=== PATIENT | female | born 1970 | race Caucasian/White ===

== ENCOUNTER 2024-08-25 08:25 | Outpatient (OUT) | payer OTHER, SELFPAY ==
[2024-08-25 08:34] LABS: Basophils Percent Auto 0.6 % (0.2-2.0); Eosinophils Absolute Auto 0.2 10^3/uL (0.0-0.7); Eosinophils Percent Auto 5.2 % (0.9-7.0); Hematocrit 40.9 % (36.0-48.0); Hemoglobin 13.2 g/dL (12.0-16.0); Immature Granulocytes Abs Auto 0.01 10^3/uL (0.00-0.03); Immature Granulocytes Pct Auto 0.2 % (0.0-0.5); Lymphocytes Absolute Auto 1.5 10^3/uL (1.2-3.8); Lymphocytes Percent Auto 31.4 % (20.5-60.0); Mean Corpuscular HGB Conc 32.3 g/dL (29.9-35.2); Mean Corpuscular Hemoglobin 29.7 pg (26.7-34.0); Mean Corpuscular Volume 91.9 fL (81.0-99.0); Monocytes Absolute Auto 0.4 10^3/uL (0.3-0.8); Monocytes Percent Auto 8.2 % (1.7-12.0); Neutrophils Absolute Auto 2.5 10^3/uL (1.4-6.5); Neutrophils Percent Auto 54.4 % (43.0-75.0); Platelet Count 301 10^3/uL (150-450); Red Blood Count 4.45 10^6/uL (4.20-5.40); Red Cell Distribution Width 12.6 % (11.0-15.0); White Blood Count 4.6 10^3/uL (4.0-11.0)
[2024-08-25 08:54] LABS: Estimated Average Glucose 114 mg/dL; Glycohemoglobin A1C 5.6 % (4.5-6.2)
[2024-08-25 08:56] LABS: Alanine Aminotransferase 30 U/L (14-59); Albumin Globulin Ratio 1.3; Albumin Level 3.8 g/dL (3.4-5.0); Alkaline Phosphatase 59 U/L (46-116); Aspartate Amino Transferase 24 U/L (15-37); Bilirubin Direct 0.1 mg/dL (0.0-0.2); Bilirubin Total 0.5 mg/dL (0.2-1.0); Calcium 8.8 mg/dL (8.5-10.1); Carbon Dioxide 29.1 mmol/L (21.0-32.0); Chloride 107 mmol/L (98-107); Cholesterol 260 mg/dL (<=200); Estimated GFR (African America >60 (>=60 mL/min/1.73m^2); Estimated GFR (Non-African Ame >60 (>=60 mL/min/1.73m^2); Glucose 95 mg/dL (74-106); HDL Cholesterol 65 mg/dL (40-60); Potassium 4.1 mmol/L (3.5-5.1); Sodium 145 mmol/L (136-145); Total Protein 6.8 g/dL (6.4-8.2); Triglycerides 80 mg/dL (<=150)
== END 2024-08-25 08:26 | disposition home or self-care (01) ==
LOC: LAB 08:25
PROVIDERS: PCP Family Medicine; Visit Provider Family Medicine
DX: E78.00 Pure hypercholesterolemia, unspecified (principal); I10 Essential (primary) hypertension; R73.02 Impaired glucose tolerance (oral)
CPT/HCPCS: 36415; 80048; 80061; 80076; 83036; 85025

== ENCOUNTER 2025-08-29 09:16 | Outpatient (OUT) | payer OTHER, SELFPAY ==
--- OUTSIDE RECORDS SUMMARY | 2025-08-29 09:21 | XMS_ITS | Clinical Summary ---
Author Organization [facility] Address [address] [place] [address] Care Team Providers Care Auto Service Instructor Name Role Phone Unallocated, Noms Provider Primary Care Provi karen Allergies No known active allergies Medications MedicationSigDispense QuantityRefillsLast FilledStart DateEnd DateStatus nystatin (Mycostatin) ointment Indications:Rash and other nonspecific skin eruptionApply to affected areas, twice daily when flared, 30 day supply 15 g 4Active Additional Information Patient not taking.Reported on 05/21/2025 triamcinolone (Kenalog) 0.1 % cream Indications:Allergic contact dermatitis, unspecified triggerApply to affected areas on arms and legs, up to twice a day when flared, do not use one the face, groin, or underarms, 30 day supply 80 g 5Active Active Problems ProblemNoted DateDiagnosed 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 Resolved Problems ProblemNoted DateDiagnosed DateResolved DateCystocele, acntfwi3807/21/2023 07/22/2023Other wiryoat85erioral oxgxntyidb45/09/2023 07/22/20230357Xtkhvarsh28Uterine Immunizations ImmunizationAdministration DatesNext AacGQY0110/30/1997 Family History Medical HistoryRelationNameCommentsMultiple sclerosisFatherDiabetesMotherEileen HypertensionMotherEileenRelationNameStatusCommentsFatherDeceasedMotherEileen Social History Tobacco UseTypesPacks/DayYears UsedDateSmoking Tobacco: NeverSmokeless Tobacco: Never Tobacco Cessation:Counseling Given: Not Answered Alcohol UseStandard Drinks/WeekCommentsNever0 (1 standard drink = 0.6 oz pure alcohol)AUDIT-CAnswerDate RecordedQ1: How often do you have a drink containing alcohol?Never07/24/2024Q2: How many drinks containing alcohol do you have on a typical day when you are drinking?Patient does not drink07/24/2024Q3: How often do you have six or more drinks on one occasion?Never07/24/2024HQ-2AnswerDate RecordedPatient Health Questionnaire-2 Dgzbd913/10/2023CommentsNoSex and Gender InformationValueDate RecordedSex Assigned at BirthNot on fileLegal Sex Ncafkk9011/24/2022 7:11 PM EDTGender IdentityNot on fileSexual OrientationNot on file Last Filed Vital Signs Vital SignReadingTime TakenCommentsBlood Uyubvvwq826/8807/24/2024 10:17 AM EST Pulse--Temperature--Respiratory Rate--Oxygen Saturation--Inhaled Oxygen Concentration--Sajnzt65.8 kg (156 lb)07/24/2024 10:17 AM WXSQgtptn101.6 cm (5' 4 )07/24/2024 10:17 AM ESTBody Mass Index26.7807/24/2024 10:17 AM EST Plan of Treatment DateTypeDepartmentCare Team (Latest Contact Info)Ridrfwbjdvl77/09/2026 10:45 AM EDTOffice Visit GISELA HUFFMAN [address] [place] [address] Aislinn Smith DO [address] [place] [address] 04/15/2026 1:00 PM EDTOffice Visit GISELA [facility] [address] [place] [address] Darling Field MD [address] [place] [address] Health MaintenanceDue DateLast DoneCommentsCT Nwtktxbqzdmc1968Colonoscopy 1968Colorectal Cancer Gwskhqpsl1968FIT-DNA1968FIT1968 FOBT1970 7528Lufgrrpxyuwux47/19/7890Nymafsozs49, 03/07/2019, 03/07/2019COVID-19 Vaccine ( season)2025Influenza Vaccine (#1) 2025Pap Smear611/ervical Cancer Tefhpohir89/12/2029 HPV/Hdsmmr77, 07/21/2021, 06/16/2020, Additional history existsPneumococcal Vaccine: Pediatrics (0 to 5 Years) and At-Risk Patients (6 to 64 Years)Aged OutNo longer eligible based on patient's age to complete this topic Procedures Procedure NamePriorityDate/TimeAssociated DiagnosisCommentsIGP, APT HPV,RFX 16/18,89Jqyapit98/12/2024 12:00 AM EST Screening for malignant neoplasm of cervix THINPREP TIS PAP AND HPV MRNA E6/E7 WITH REFLEX TO HPV 16,18/30Qxgkrco92/10/2023 11:35 AM EST BI MAMMOGRAM SCREENING TOMOSYNTHESIS LMOLNZYOAKqewewi56/25/2022 from Last 3 Months or Most Recently Relevant to Health Maintenance Results * IGP, APT HPV,RFX 16/18,45 (07/24/2024 12:00 AM EST)ComponentValueRef RangeTest MethodAnalysis TimePerformed AtPathologist SignatureDiagnosis:CommentLABCORP Comment:NEGATIVE FOR INTRAEPITHELIAL LESION OR MALIGNANCY.Specimen Adequacy: CommentLABCORPComment: Satisfactory for evaluation. ??Endocervical and/or squamous metaplastic cells (endocervical component) are present. Clinician Provided ICD10:CommentLABCORPComment:Z12.4Performed By:CommentLABC[facility]P Comment:Jacquie C Wilt, Jewelry Bench Molder (ASCP)Cyto Comments.LABCORPNote:Comment [facility]PComment: The Pap smear is a screening test designed to aid in the detection of premalignant and malignant conditions of the uterine cervix. ??It is not a diagnostic procedure and should not be used as the sole means of detecting cervical cancer. ??Both false-positive and false-negative reports do occur. Test Methodology:CommentLABCORPComment: This liquid based ThinPrep(R) pap test was screened with the use of an image guided system. HPV AptimaNegativeNegativeLABCORPComment: This nucleic acid amplification test detects fourteen high-risk HPV types (16,18,31,33,35,39,45,51,52,56,58,59,66,68) without differentiation. Specimen (Source)Anatomical Location / LateralityCollection Method / Volume Collection TimeReceived VvfxXnbt79 Narrative [facility] - 07/27/2024 11:09 AM EST Performed at: 01 - [facility] [address] [place] [address] ??[id number] Supervisor Metal Furniture Fabrication: Jerry Teran MD, Phone: ??[phone] Performed at: ??02 - Lab[address] ??[id number] Supervisor Metal Furniture [employer]ation: Dot Padron MD, Phone: ??[phone] Performed at: ??03 - [facility] ??[id number] Supervisor Metal Furniture Fabrication: Dot Padron MD, Phone: ??[phone] Specimen Comment: [id number] Specimen Comment: No. of containers..01 ThinPrep Vial Authorizing ProviderResult TypeResult StatusWilliaviviane DominguezSelect Medical Special[facility] [place] BLOOD ORDERABLESFinal ResultPerforming OrganizationAddressCity/State/ZIP CodePhone Number [facility] * THINPREP TIS PAP AND HPV MRNA E6/E7 WITH REFLEX TO HPV 16,18/45 (07/22/2023 11:35 AM EST)ComponentValueRef RangeTest MethodAnalysis TimePerformed At Pathologist SignatureCLINICAL INFORMATIONQUESTComment:None givenLMPQUEST Comment:2017PREV. PAPQUESTComment:NEGPREV. BXQUESTComment:NONE GIVENSOURCE QUESTComment:None givenSTATEMENT OF ADEQUACYQUESTComment:SATISFACTORY FOR EVALUATIONINTERPRETATION/RESULTQUESTComment: Cytology Results: Negative for intraepithelial lesion or malignancy. Atrophic pattern; predominantly parabasal cells COMMENTQUESTComment: This Pap test has been evaluated with computer assisted technology. Parabasal cells in smears that lack maturation due to atrophy or other hormonal reasons cannot be differentiated from transformation zone cells. Accordingly, presence or absence of endocervical or transformation zone components cannot be reported in this patient. CYTOTECHNOLOGISTQUESTComment: LXT, CT(ASCP) CT screening location: [facility] [place], [address] [place] [address]. (ALWAYS MESSAGE)QUESTComment: EXPLANATORY NOTE: The Pap is a screening test for cervical cancer. It is not a diagnostic test and is subject to false negative and false positive results. It is most reliable when a satisfactory sample, regularly obtained, is submitted with relevant clinical findings and history, and when the Pap result is evaluated along with historic and current clinical information. HPV MRNA E6/E7Not DetectedNot DetectedQUESTComment: Methodology: Hat Binder-Mediated Amplification This assay detects E6/E7 viral messenger RNA (mRNA) from 14 high-risk HPV types (16,18,31,33,35,39,45,51,52,56,58,59,66,68). Cervical sources are required for HPV testing. If a vaginal source from a patient who has had a total hysterectomy with removal of cervix was submitted, please contact the testing laboratory for alternative testing options. For additional information, please refer to http://education.Vascular Imaging/faq/CTO288l0 (This link if provided for information/ educational purposes only.) Specimen (Source)Anatomical Location / LateralityCollection Method / Volume Collection TimeReceived Time07/22/2023 11:35 AM EST07/23/2023 2:50 AM EST Narrative Resulting Agency Comment Performing Organization Information ?Site ID: [id number] ?Name: [facility] ?Address: [address] [place] [address], [address] [place] [phone] ?Director: Phan Erazo MD Authorizing ProviderResult TypeResult StatusWilliam D Luis DOLAB CYTOLOGY ORDERABLESFinal ResultPerforming OrganizationAddressCity/State/ZIP CodePhone Number [facility] * Bilateral screening mammogram with tomosynthesis (05/06/2022)Anatomical Region LateralityModalityBreastBilateralMammographySpecimen (Source)Anatomical Location / LateralityCollection Method / VolumeCollection TimeReceived Time Narrative 05/06/2022 12:00 AM EDT PERFORMED AT [facility] LOCATION:[place] [phone] Patient: ? DUGLAS Benz ? Exam Date: ? 05/06/2022 : ? 1970 ?Gender:F ? Ordering : ? DR AISLINN SMITH ? Admission #: ? [id number] Family : ?Order #: ? [id number] ? CLICK HERE TO VIEW EXAM RADIOLOGY REPORT PROCEDURE: ? MAMMOGRAM SCREENING 3D BILATERAL CAD COMPARISON: ? MG MAMM SCREEN JESSICA W CAD 03/07/2019. ??MG MAMM SCREEN JESSICA W CAD 06/08/2017. INDICATIONS: ? Screening mammography Calculator Name ? NCI Breast Cancer Risk Assessment Tool 5 Year Breast Cancer Risk ? 1.20% Lifetime Breast Cancer Risk ? 9.40% Personal Breast Cancer ?No Personal Ovarian Cancer ? No Treatments ? None Family Cancers ? Uncle-maternal with colon cancer at age 70. LOCATION: ? [facility] BREAST COMPOSITION: ? Scattered areas fibroglandular density. FINDINGS: DIAGNOSTIC CATEGORY 1--NEGATIVE. RIGHT BREAST: ??No significant suspicious finding. ??No significant change has occurred. LEFT BREAST: ??No significant suspicious finding. ??No significant change has occurred. RECOMMENDATIONS: ROUTINE MAMMOGRAM AND CLINICAL EVALUATION IN 12 MONTHS. PLEASE NOTE: ??A NORMAL MAMMOGRAM DOES NOT EXCLUDE THE POSSIBILITY OF BREAST CANCER. ??A CLINICALLY SUSPICIOUS PALPABLE LUMP SHOULD BE BIOPSIED. Dictated by: Raz Elias M.D. on 05/07/2022 at 12:52 Approved by: Raz Elias M.D. on 05/07/2022 at 12:54 Procedure Note CONVERSION, GENERIC - 03/18/2023 PERFORMED AT [facility] LOCATION:[place] [address] Patient: DUGLAS Loera. Exam Date: 05/06/2022 : 1970 Gender:F Ordering : DR AISLINN SMITH Admission #: [id number] Family : Order #: [id number] CLICK HERE TO VIEW EXAM RADIOLOGY REPORT PROCEDURE: MAMMOGRAM SCREENING 3D BILATERAL CAD COMPARISON: MG MAMM SCREEN JESSICA W CAD 03/07/2019. MG MAMM SCREEN JESSICA W CAD 06/08/2017. INDICATIONS: Screening mammography Calculator Name NCI Breast Cancer Risk Assessment Tool 5 Year Breast Cancer Risk 1.20% Lifetime Breast Cancer Risk 9.40% Personal Breast Cancer No Personal Ovarian Cancer No Treatments None Family Cancers Uncle-maternal with colon cancer at age 70. LOCATION: [facility] BREAST COMPOSITION: Scattered areas fibroglandular density. FINDINGS: DIAGNOSTIC CATEGORY 1--NEGATIVE. RIGHT BREAST: No significant suspicious finding. No significant changehas occurred. LEFT BREAST: No significant suspicious finding. No significant changehas occurred. RECOMMENDATIONS: ROUTINE MAMMOGRAM AND CLINICAL EVALUATION IN 12 MONTHS. PLEASE NOTE: A NORMAL MAMMOGRAM DOES NOT EXCLUDE THE POSSIBILITY OFBREAST CANCER. A CLINICALLY SUSPICIOUS PALPABLE LUMP SHOULD BE BIOPSIED. Dictated by: Raz Elias M.D. on 05/07/2022 at 12:52 Approved by: Raz Elias M.D. on 05/07/2022 at 12:54 Authorizing ProviderResult TypeResult StatusWilljosemanuel Smith DOIMG BI PROCEDURES Final Result from Last 3 Months or Most Recently Relevant to Health Maintenance Insurance Care Teams Team MemberRelationshipSpecialtyStart DateEnd Date Unallocated, Noms Provider, [address] [facility], [place] [id number] PCP - Vdgfpzl10/9/23
[2025-08-29 09:38] LABS: Hematocrit 42.9 % (36.0-48.0); Hemoglobin 13.7 g/dL (12.0-16.0); Immature Granulocytes Abs Auto 0.00 10^3/uL (0.00-0.03); Immature Granulocytes Pct Auto 0.0 % (0.0-0.5); Lymphocytes Absolute Auto 1.0 10^3/uL (1.2-3.8); Mean Corpuscular HGB Conc 31.9 g/dL (29.9-35.2); Mean Corpuscular Hemoglobin 29.1 pg (26.7-34.0); Mean Corpuscular Volume 91.3 fL (81.0-99.0); Platelet Count 283 10^3/uL (150-450); Red Blood Count 4.70 10^6/uL (4.20-5.40); White Blood Count 4.1 10^3/uL (4.0-11.0)
[2025-08-29 10:59] LABS: Alanine Aminotransferase 31 U/L (14-59); Albumin Globulin Ratio 1.5; Albumin Level 4.5 g/dL (3.4-5.0); Alkaline Phosphatase 66 U/L (46-116); Anion Gap 5.4; Aspartate Amino Transferase 26 U/L (15-37); Blood Urea Nitrogen 11.0 mg/dL (7.0-18.0); Calcium 9.6 mg/dL (8.5-10.1); Carbon Dioxide 31.4 mmol/L (21.0-32.0); Chloride 105 mmol/L (98-107); Cholesterol 285 mg/dL (<=200); Estimated GFR (African America >60 (>=60 mL/min/1.73m^2); Estimated GFR (Non-African Ame >60 (>=60 mL/min/1.73m^2); Globulin 3.0 g/dL; Glucose 97 mg/dL (74-106); HDL Cholesterol 71 mg/dL (40-60); Potassium 3.8 mmol/L (3.5-5.1); Sodium 138 mmol/L (136-145); Total Protein 7.5 g/dL (6.4-8.2); Triglycerides 72 mg/dL (<=150); VLDL CHOLESTEROL 14.4 mg/dL
== END 2025-08-29 09:17 | disposition home or self-care (01) ==
LOC: LAB 09:16
PROVIDERS: PCP Family Medicine; Visit Provider Family Medicine
DX: E78.00 Pure hypercholesterolemia, unspecified (principal); I10 Essential (primary) hypertension; R73.02 Impaired glucose tolerance (oral)
CPT/HCPCS: 36415; 80048; 80061; 80076; 83036; 85025